=== PATIENT | male | born 1955 | race Hispanic/Latino ===

== ENCOUNTER 2017-10-13 13:51 | Emergency (ER) | payer OTHER | END 2017-10-13 14:16 | disposition left against medical advice (07) | LOC: EDH 13:51 | DX: E11.39 Type 2 diabetes mellitus with other diabetic ophthalmic complication (principal); H40.9 Unspecified glaucoma; I10 Essential (primary) hypertension; I24.9 Acute ischemic heart disease, unspecified; Z72.0 Tobacco use | CPT/HCPCS: 99281 ==